=== PATIENT | female | born 1955 | race Caucasian/White ===

== ENCOUNTER → 2017-06-09 10:00 | Outpatient (CLI) | payer OTHER ==
--- NOTE | 2017-06-09 13:29 | NUR ---
Nutrition education for DMT2: S: Pt states she has had DMT2 since 2004. Pt has never seen a registered dietitian until now. Pt is with her . Pt states she will not drink water because it is bitter. Pt only drinks diet boy and artifically sweetened tea. Pt eats sweets at least 2 or more times every day. Pt drinks a large glass of juice when she thinks her potassium is low? Pt sits most of the day. Pt eats nonstarchy vegetables 2-3 times a week. Pt thinks potatoes, corn and dried beans are vegetables. Pt drinks some milk during the day. Pt reports she has gained ~10# snce starting insulin in July 2016. O: 61 year old female Medications: Trejio 60 units HS, Humolog SS before meals A: Diet recall reveals pt is overeating all food at meals. Pt has no idea what a portion size is. Reviewed CHO containing foods and the affect CHO have on glucose. Reviewed portion sizes of common CHO foods. Reviewed sample menus with emphasis on CHO foods. Stressed the importance of eating meals at consistent times along with portion control. Advised pt to eliminate all sugary foods and drinks from diet to keep glucose under better control. Pt als advised to start drinking more water and less diet soda. Pt is not happy with my recommendations. Pt looks like she is going to cry. I explained to pt that her weight gain is from the additon of insulin and if insulin keeps getting increased to cover higher glucose levels her weight will continue to increase. Pt is still not happy. RDN feels pt is not going to be complianct with RDN recommendations due to not wanting to make the diet changes. P: Provided pt with printed diet information and RDN name and phone number. RDN will be available if needed. Thank you for the consult.
== END ==
LOC: D.FANS 10:00
DX: E11.9 Type 2 diabetes mellitus without complications (principal)